=== PATIENT | female | born 1935 | race Caucasian/White ===

== ENCOUNTER 2016-07-16 11:27 | Day surgery (SDC) | payer MEDICARE, BC ==
[~2016-07-16] VITALS: Ht 154.9 cm; Wt 53.2 kg
[~2016-07-16 11:27] MED LIST: ADVIL200 MG PO; ASPIRIN 81M81 MG/TA2 PO; HCTZ 25MG TAB25 MG PO; LEVOXYL0.025 MG PO; LOPRESSOR100 MG PO; NORCO 325 MG-51 TAB PO; OYSCO 500500 M1 PO; SYNTHROID0.125 MG/T PO; TOPROL XL 25MG25 MG PO; ZYLOPRIM 100MG100 MG PO; ZYLOPRIM 300MG300 MG PO
[2016-07-16 12:45] LABS: ADJUSTED CALCIUM 9.5 mg/dL (8.4-10.2); ALANINE AMINOTRANSFERASE 21 U/L (9-52); ALBUMIN 3.9 gm/dL (3.5-5.0); ALKALINE PHOSPHATASE 124 U/L (50-136); ANION GAP 15 mmol/L (7-16); BILIRUBIN,TOTAL 1.3 mg/dL (0.0-1.0); BLOOD UREA NITROGEN 35 mg/dL (7-17); CALCIUM 9.4 mg/dL (8.4-10.2); CARBON DIOXIDE 24 mmol/L (22-30); CHLORIDE 100 mmol/L (98-107); CREATININE, serum 1.33 mg/dL (0.52-1.25); GLUCOSE 97 mg/dL (74-106); LIPASE 161 U/L (23-300); MEAN CELL VOLUME 92 fl (80.0-100.0); MEAN CORPUSCULAR HGB CONC 33 g/dl (33.0-37.0); MEAN PLATELET VOLUME 10.9 fl (7.4-10.4); PLATELET COUNT 197 K/mm3 (130-400); POTASSIUM 3.5 mmol/L (3.4-5.0); RED BLOOD COUNT 3.78 M/mm3 (4.10-5.30); REDCELL DISTRIBUTION WIDTH-CV 15.6 % (11.5-14.5); SODIUM 139 mmol/L (137-145); TOTAL PROTEIN 8.3 gm/dL (6.4-8.2); WHITE BLOOD COUNT 15.4 K/mm3 (4.8-10.8)
[2016-07-16 12:47] LABS: ADD PATHOLOGY DIFF REVIEW NO; HEMATOCRIT 34.8 % (37.0-47.0); HEMOGLOBIN 11.3 g/dl (12.5-16.0); MEAN CORPUSCULAR HEMOGLOBIN 30 pg (27.0-31.0)
[2016-07-16 13:01] LABS: TROPONIN-I < 0.012 ng/mL (0.000-0.034)
[2016-07-16 13:10] LABS: PH 5 (5-8); SQUAMOUS EPITHELIAL None Seen /hpf; URINE APPEARANCE Clear; URINE BACTERIA None Seen /hpf; URINE BILIRUBIN Negative (NEGATIVE); URINE BLOOD Negative (NEGATIVE); URINE COLOR Yellow; URINE GLUCOSE Negative (NEGATIVE); URINE KETONE Negative (NEGATIVE); URINE RBC 0-2 /hpf; URINE UROBILINOGEN Negative (NEGATIVE); URINE WBC 0-2 /hpf
[2016-07-16 13:24] LABS: ANISOCYTOSIS 1+; BAND 21 % (0-10); NEUTROPHILS 70 % (42.0-75.2); PLATELET ESTIMATE NORMAL (NORMAL); TOTAL CELLS COUNTED 100
[2016-07-16 15:51] VITALS: BP 137/56; PULSE 77; TEMP 98.3
[2016-07-16 17:47] VITALS: BP 109/44; PULSE 76; TEMP 98.2
[2016-07-16 21:32] VITALS: BP 118/55; PULSE 70; TEMP 99.1
[2016-07-17] VITALS (12 sets, daily range): BP systolic 101–159; BP diastolic 40–56; PULSE 6–80; TEMP 97.6–98.4
[2016-07-18 01:51] VITALS: BP 139/57; PULSE 66; TEMP 97.7
[2016-07-18 06:12] VITALS: BP 140/59; PULSE 66; TEMP 97.9
[2016-07-18 09:41] VITALS: BP 119/46; PULSE 66; TEMP 98.1
[2016-07-18] MEDS ORDERED: AMOXICILLIN 8751 TAB PO (11:40)
[2016-07-18] MEDS ORDERED: NORCO 325 MG-51 TAB PO (11:48)
== END 2016-07-18 12:22 | disposition home or self-care (01) ==
LOC: COL.ER 11:27 → SDCO 14:48 → SURG 14:48 → SDCO 07-18 12:22
PROVIDERS: Physician Assistant
DX: K80.12 Calculus of gallbladder with acute and chronic cholecystitis without obstruction (principal); C79.81 Secondary malignant neoplasm of breast; I10 Essential (primary) hypertension; C79.51 Secondary malignant neoplasm of bone; Z85.3 Personal history of malignant neoplasm of breast; R18.8 Other ascites; M10.9 Gout, unspecified; E03.9 Hypothyroidism, unspecified
CPT/HCPCS: OP; J0694; J0696; J1100; J1170; J1956; J2270; J2370; J2405; J2550; J2704; J3010; J7040; J7120; Q9967